=== PATIENT | female | born 1995 | race Caucasian/White ===

== ENCOUNTER 2021-10-17 12:17 | Emergency (ER) | payer BC ==
[~2021-10-17] VITALS: Ht 162.6 cm; Wt 72.7 kg
[2021-10-17 12:27] VITALS: BP 128/80
[2021-10-17] MEDS ORDERED: tetanus & diphtheria toxoid (Td) vaccine 0.5ml IMVAC ONE (13:35)
[2021-10-17] MEDS ORDERED: TETanus/Pertussis (Acell)/Diphther VAC/PF (Tdap-Adult) 0.5ml syringe IMVAC ONE (13:50)
== END 2021-10-17 14:01 | disposition home or self-care (01) ==
LOC: ER 12:18
DX: S90.02XA Contusion of left ankle, initial encounter (principal); W19.XXXA Unspecified fall, initial encounter; Y93.9 Activity, unspecified; Y92.89 Other specified places as the place of occurrence of the external cause; Y99.8 Other external cause status
CPT/HCPCS: 73610; 73630; 90471; 90715; 99284; L4360

== ENCOUNTER 2023-06-25 15:46 | Emergency (ER) | payer BC ==
[~2023-06-25] VITALS: Ht 162.6 cm; Wt 84.1 kg
[2023-06-25 16:21] VITALS: BP 129/88; PULSE 82; RESP 18; O2SAT 98
[2023-06-25 17:07] LABS: BASOPHILS % (AUTO) 0.1 % (0-1); EOSINOPHILS # (AUTO) 0.1 X10'3 (0-0.9); EOSINOPHILS % (AUTO) 0.6 % (0-6); HEMATOCRIT 40.2 % (35.0-45.0); HEMOGLOBIN 13.3 g/dl (12.0-16.0); LYMPHOCYTES # (AUTO) 2.7 X10'3 (1.1-4.8); LYMPHOCYTES % (AUTO) 27.9 % (21-51); MEAN CORPUSCULAR HEMOGLOBIN 29.9 PG (27.0-31.0); MEAN CORPUSCULAR VOLUME 90.6 FL (78-98); MEAN PLATELET VOLUME 8.7 FL (7.4-10.4); MONOCYTES # (AUTO) 0.5 X10'3 (0-0.9); NEUTROPHILS # (AUTO) 6.5 X10'3 (1.8-7.7); NEUTROPHILS % (AUTO) 66.4 % (42-75); PLATELET COUNT 373 X10'3 (140-440); RED BLOOD COUNT 4.43 X10'6 (4.20-5.60); RED CELL DISTRIBUTION WIDTH 13.5 % (11.5-14.5); WHITE BLOOD COUNT 9.8 X10'3 (4.5-11.0)
[2023-06-25 17:26] LABS: ALANINE AMINOTRANSFERASE 22 U/L (12-78); ALBUMIN 3.2 G/DL (3.4-5.0); ALBUMIN/GLOBULIN RATIO 0.8 (1.1-1.5); ALKALINE PHOSPHATASE 67 IU/L (46-116); ANION GAP 7 (8-16); ASPARTATE AMINO TRANSFERASE 28 U/L (10-37); BILIRUBIN,TOTAL 0.3 MG/DL (0.1-1.0); BLOOD UREA NITROGEN 13 MG/DL (7-18); BUN/CREATININE RATIO 16.3 (10.0-20.0); CALCIUM 8.5 MG/DL (8.5-10.1); CHLORIDE 102 MMOL/L (99-107); GLUCOSE 79 MG/DL (70-104); POTASSIUM 3.7 MMOL/L (3.5-5.1); SODIUM 136 MMOL/L (135-145); eCRCL 90 ML/MIN; eGFR 85 ML/MIN
[2023-06-25 17:37] LABS: MAGNESIUM 1.9 MG/DL (1.5-2.4); PRO BRAIN NATRIURETIC PEPTIDE 46 PG/ML (0-125); THYROID STIMULATING HORMONE 1.36 ulU/ml (0.34-4.50)
[2023-06-25 18:52] VITALS: TEMP 98.2
[2023-06-25 18:58] LABS: HCG SERUM QL NEGATIVE
== END 2023-06-25 18:54 | disposition home or self-care (01) ==
LOC: ER 15:46
DX: R60.0 Localized edema (principal); Z88.1 Allergy status to other antibiotic agents
CPT/HCPCS: 36415; 71045; 80053; 83735; 83880; 84439; 84443; 84484; 84703; 85025; 93005; 93970; 99285

== ENCOUNTER 2023-10-10 22:20 | Emergency (ER) | payer BC ==
[~2023-10-10] VITALS: Ht 162.6 cm; Wt 81.8 kg
[2023-10-10 22:29] VITALS: BP 117/94; PULSE 74; RESP 14; TEMP 98.1; O2SAT 100
[2023-10-10] MEDS ORDERED: CEPH-585 PO (23:09)
[2023-10-10] MEDS ORDERED: PRED20TA PO (23:09)
[2023-10-10] MEDS: dexamethasone sod phosphate 10mg/ml inj IM STA (23:52)
[2023-10-10] MEDS: CefTRIAXone 1000mg IM Kit (w/lidocaine diluent) IM ONE (23:53)
== END 2023-10-11 00:03 | disposition home or self-care (01) ==
LOC: ER 22:20
DX: T63.441A Toxic effect of venom of bees, accidental (unintentional), initial encounter (principal); Z88.1 Allergy status to other antibiotic agents; Y92.89 Other specified places as the place of occurrence of the external cause
CPT/HCPCS: 96372; 99284; J0696; J1100